=== PATIENT | female | born 1975 ===

== ENCOUNTER 2018-10-10 10:15 | Inpatient (IN) | payer MEDICAID ==
[2018-10-10 19:44] VITALS: BMI 30.8
[2018-10-10] MEDS ORDERED: Lactated Ringer's 1,000 ML IV ONE (19:44)
[2018-10-10] MEDS ORDERED: Nalbuphine HCL 10 mg/ml Ampule IVP ONE (19:47)
--- NOTE | 2018-10-10 20:04 | OBADHP ---
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 , LMP 12/27/17, DUNIA 10/03/18, EGA 41 weeks by sono 03/26/18 at 12w 5d foe elective IOL. ( +) AFM; denies LOF, VB, Ctx; (+) mild vaginal pressure. 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 Denies h/o STIs, abnormal pap, ov cysts, myomata PMH: denies PSH: denies NKDA Meds: PNV - QD; last took this morning Soc Hx: denies tobacco, illicit drug or EtOH use. With FOB x 1 year. Unemployed. Lives alone. Fam Hx: Mother alive 65 y.o. Father alive 64 y.o., both, no med issues. No known fam h/o cancer Assessment: 43 y.o. P0, 41 weeks, IOL. Category 1 tracing. Explained to patient: ripening agent, p ossible pitocin; pain management options were also discussed. Patient expressed an understanding; her and FOB's questions were answered. Patient is clinically stable. Plan: 1) Admit 2) NPO 3) Admission labs 4) Continuous EFM 5) Cervidil, pV 6) Anticipate vaginal delivery Pelvic Type - PN: Adequate Extremities - PN: Normal Abdomen - PN: Normal Back - PN: Normal Breast - PN: Not Done Lungs - PN: Normal Heart - PN: Normal Thyroid - PN: Not Done Neurologic - PN: Normal HEENT - PN: Normal General - PN: Normal Weight - Estimated: 3632 Presentation-Admit: Vertex FHR - Baseline A Provider: 145 Membranes, Provider: Intact Contraction Comments Provider: none Comments, ACOG Physical Exam: Abdomen: Gravid. Soft. Non tender. Fundal height 38cm All other systems reviewed and are negative Gestation - Est Wks by US: 41.0 IP Hx Assessment: The History has been Reviewed and is Current Vital Signs Provider: Reviewed IP Chief Complaint: Scheduled induction of labor Dilatation, Provider: 0 Effacement, Provider: 0 Station, Provider: -3 Genitourinary Exam: Normal DTRs - PN: Not Done EGA AdmitDate IP: 41.0 IP Adm Impression: Postterm, intrauterine ; No Active Labor IP Admit Plan: Admit to unit; Initiate labor induction protocol
[2018-10-10 20:09] LABS: BASO % 0.4 % (0.0-2.0); EOS # 0.3 K/uL (0.0-0.7); EOS % 2.3 % (0.0-4.0); HEMOGLOBIN 13.2 g/dL (11.0-16.0); LYMPH % 23.5 % (20.0-40.0); MEAN CELL VOLUME 86.9 fL (81.0-99.0); MEAN CORPUSCULAR HEMOGLOBIN 30.1 pg (27.0-31.0); MEAN CORPUSCULAR HGB CONC 34.6 g/dL (33.0-37.0); MEAN PLATELET VOLUME 8.9 fL (7.2-11.7); MONO % 8.2 % (0.0-10.0); NEUT # 8.4 K/uL (1.8-7.0); NEUT % 65.6 % (50.0-75.0); NRBC % 0.1 % (0.0-2.0); RBC 4.38 Mil/uL (3.80-5.20); RED CELL DISTRIBUTION WIDTH 14.8 % (11.5-14.5); WHITE BLOOD COUNT 12.8 K/uL (4.8-10.8)
[2018-10-10 20:15] LABS: SQUAMOUS EPITHIAL 15 /hpf (0-5); URINE BACTERIA RARE (<OCC); URINE BILIRUBIN NEGATIVE (NEGATIVE); URINE BLOOD NEGATIVE (NEGATIVE); URINE CALCIUM OXALATE CRYSTALS FEW /hpf (<OCC); URINE CLARITY Hazy (Clear); URINE COLOR Yellow (YELLOW); URINE GLUCOSE (UA) NORMAL (Normal); URINE LEUKOCYTE ESTERASE 3+ Leu/uL (Negative); URINE PROTEIN NEGATIVE (NEGATIVE)
[2018-10-10] MEDS: Lactated Ringer's 1,000 ML IV SCH (20:20)
--- NOTE | 2018-10-10 20:21 | OBPN ---
Datetime: 10/10/2018 20:15 IP Procedures Other: Cervidil placed IP Progress Impression Other: AMA; 41 weeks IP Procedures: Sterile Vag Exam IP Progress Plan: Continue present management; Anticipate Vaginal Delivery Contraction Comments Provider: infrequent Gestation - Est Wks by US: 41.0 IP Progress Note Comment: Cervidil placed in posterior vaginal vault Assessment: 43y.o. P0, 41 weeks, IOL. AMA. Category 1 tracing. Clinically stable. Plan 1) Antiicpate vaginal delivery Vital Signs Provider: Reviewed; Within Normal Limits Dilatation, Provider: 0 Effacement, Provider: 0 Station, Provider: -3 Datetime: 10/10/2018 19:47 Membranes, Provider: Intact FHR - Baseline A Provider: 145 Weight - Estimated: 3632 Presentation-Admit: Vertex
[2018-10-10 20:22] LABS: ALB/GLOB RATIO 1.2 (1.0-2.1); ALBUMIN 3.4 g/dL (3.5-5.0); BLOOD UREA NITROGEN 13 mg/dL (7-17); CALCIUM 8.9 mg/dl (8.6-10.4); GFR NON-AFRICAN AMERICAN > 60
[2018-10-10 20:33] LABS: ALT/SGPT 17 U/L (9-52); AST/SGOT 25 U/L (14-36)
[2018-10-11] MEDS ORDERED: Bupivacaine HCl/FentaNYL Cit 100 ML EPI ONE ×2 (13:41→19:42)
[2018-10-11] MEDS: Lactated Ringer's 1,000 ML IV SCH (17:02)
--- NOTE | 2018-10-11 17:02 | OBPN ---
Datetime: 10/11/2018 16:50 IP Progress Impression Other: Latent phase of labor IP Progress Impression: Normal progression of labor IP Procedures: Artificial ROM; Intrauterine Pressure Catheter; Scalp Electrode IP Progress Plan: Continue present management; Augmentation; Anticipate Vaginal Delivery Membranes, Provider: Ruptured Amniotic Fluid Color, Provider: Clear Contraction Comments Provider: 4-6 FHR - Baseline A Provider: 145 Gestation - Est Wks by US: 41w 1d Presentation-Admit: Vertex IP Progress Note Comment: Patient received in LDR#1 VOYCE Mink Rancher [place], [place] [id number] At approx 1300 hours, patient had been counseled re: continued labor management. This included a d iscussion of AROM, pitocin augmentation and pain management in the form of an epidural. At yamileth time, questions from patient and were answered. Patient had agreed to receiving the epidural - same was placed without incident. At 1640 hours, cervical exam was performed - results as above. AROM yielded minimal amount of jenaro r amnionic fluid. IUPC and ISE were inserted and placed without incident. Assessment: 43 y.o. P0, 41w 1d, IOL; S/P cervidil, cytotec, and now AROM - entering active phase o f labor. As above. Category 1 tracing. Patient is clinically stable. Plan: 1) Start pitocin 2) Anticipate vaginal delivery Vital Signs Provider: Reviewed; Within Normal Limits FHR Category Provider Fetus A: Category I NICHD Variability Prov Fetus A: Moderate 6-25bpm Dilatation, Provider: 5 Effacement, Provider: 50 Station, Provider: -3 NICHD Decel Fetus A IP Provider: None Datetime: 10/11/2018 11:06 IP Informed Consent Obtain: Vaginal Delivery NICHD Accel Fetus A IP Provider: 10X10
[2018-10-11] MEDS ORDERED: Oxytocin 30 UNIT in NS 500 ml 30 UNITS/500 ML BAG IV ONE (17:19)
[2018-10-11] MEDS ORDERED: Oxytocin 30 UNIT in NS 500 ml 30 UNITS/500 ML BAG IV SCH (17:30)
--- NOTE | 2018-10-11 20:16 | OBPN ---
Datetime: 10/11/2018 20:04 IP Progress Impression: Normal progression of labor IP Procedures: Sterile Vag Exam IP Progress Plan: Continue present management; Augmentation; Anticipate Vaginal Delivery Membranes, Provider: Ruptured Contraction Comments Provider: 2-5 FHR - Baseline A Provider: 150 Gestation - Est Wks by US: 41w 1d Presentation-Admit: Vertex IP Progress Note Comment: Asked by R.N. to area counselor with patient: patient's is requesting a C /S VOYCE ID [id number], Fabi Lengthy discusison with patietn and explaining the lengthy process that constitutes IOL th at progresses and results in a vaginal delivery. This had been dD/W patietn and last night; s iman reiterated again. Patient and were concerned as they feel that "thisis taking too long" Cervical examination performed - as above. Pitocin = 6 MUnits. It was explained that the designa tionof 5 cm as acitvie labor was only achieved as of cervical exam at 1640 hours; and that the maneuv ers taken to get to that point, albeit lengthy, are not considered part of active labor. It was expla iined that with the combination of AROM, and pitocin augmentation, progress is being made. Patient and have also been concerned about the well-being of the baby. It was disclosed th at as per our monitoring, the baby appears to be doing well. Assessment: 43 y.o P0, at 41w 1d, IOL now in active labor. Category 1 tracing. Patient has agreed to continue with the labor process in the anticipation of a successful vaginal delivery. Patient is c linically stable. Plan: 1) continue pitocin 2) anticipate vaginal delivery Vital Signs Provider: Reviewed NICHD Accel Fetus A IP Provider: 10X10 FHR Category Provider Fetus A: Category I NICHD Variability Prov Fetus A: Moderate 6-25bpm Dilatation, Provider: 5 Effacement, Provider: 70 Station, Provider: -1 to 0 NICHD Decel Fetus A IP Provider: None
--- NOTE | 2018-10-11 23:27 | OBPN ---
Datetime: 10/11/2018 23:22 IP Progress Impression: Normal progression of labor IP Procedures: Sterile Vag Exam IP Progress Plan: Continue present management; Augmentation; Anticipate Vaginal Delivery Contraction Comments Provider: 2 FHR - Baseline A Provider: 145 Gestation - Est Wks by US: 41w 1d Presentation-Admit: Vertex IP Progress Note Comment: Patient reports increasing vaginal pressure Cervical exam - as above. Pitocin = 10 MUnits Assessment: 43 y.o. P0, 41w 1d S/P IOL near end of Stage 1 of labor. Category 1 tracing. Luisa is clinically stablbe. Plan: 1) continue present management 2) Antiicipate vaginal delivery NICHD Accel Fetus A IP Provider: 10X10 FHR Category Provider Fetus A: Category I NICHD Variability Prov Fetus A: Moderate 6-25bpm Dilatation, Provider: 10 Effacement, Provider: 90 Station, Provider: 0 to +1 NICHD Decel Fetus A IP Provider: Early
[2018-10-12] MEDS ORDERED: Lidocaine 2% MPF (5 ml) Inj ONE (00:04)
[2018-10-12] MEDS ORDERED: Bupivacaine HCl 0.5% PF (10 ml) Inj ONE (00:21)
[2018-10-12] MEDS ORDERED: cefOXitin IV 2 gm in Dextrose 2 GM/50 ML BAG IVPB ONE ×2 (00:48→01:09)
[2018-10-12] MEDS ORDERED: Sodium Citrate/Citric Acid 15 ml Sol PO ONE (00:48)
--- NOTE | 2018-10-12 00:59 | OBPN ---
Datetime: 10/12/2018 00:51 IP Progress Impression: Arrest of dilatation/descent IP Informed Consent Obtain: Section Delivery IP Procedures: Sterile Vag Exam IP Progress Plan: Deliver- Section Contraction Comments Provider: 3-4 FHR - Baseline A Provider: 145 IP Progress Note Comment: Patient with increasing pelvic pressure Cervical exam as above. Pitocin = 10 MUnits Assessment: 43 y.o. P0, 41w 2d, arrest of descent and dilatation at 9.5 cm. Category 1 tracing. Ben gaming counseled for primary C/S. Patient agrees. Informed consent obtained. Patient is clinically sta ble. Plan: 1) Abdominal prep and shave 2) Notify anesthesia 3) Notify peds 4) Mefoxin, professor of education to O.R. 5) patient professor of education to O.R. FHR Category Provider Fetus A: Category I NICHD Variability Prov Fetus A: Moderate 6-25bpm Dilatation, Provider: 10 Effacement, Provider: 90 Station, Provider: 0 NICHD Decel Fetus A IP Provider: Early
[2018-10-12] MEDS ORDERED: Oxytocin 20 units in LR 2,000 ML IV ONE (01:09)
[2018-10-12] MEDS ORDERED: Sodium Citrate/Citric Acid 15 ml Sol ONE (01:09)
[2018-10-12] MEDS ORDERED: Oxytocin 10 Units/ml Inj ONE (01:19)
[2018-10-12] MEDS ORDERED: ePHEDrine 50 mg/ml Inj ONE (02:02)
[2018-10-12] MEDS ORDERED: Morphine 1 mg/ml preservative-free Inj(Duramorph) ONE (02:02)
[2018-10-12] MEDS ORDERED: Oxycodone/Acetaminophen 5/325 mg Tab PO PRN ×2 (03:25)
--- NOTE | 2018-10-12 03:32 | PCM.SURG1 ---
Surgeon's Initial Post Op Note - Surgeon's Notes Surgeon: Nola English MD Cushion Gum Applicator: Andrea Lucas MD Type of Anesthesia: Spinal Anesthesia Administered By: Niesha Sanchez MD Pre-Operative Diagnosis: 41 weeks 3 days, arrest of dilatation/descent; Advanced maternal age, Operative Findings: Live female , АЛЕКСАНДР position, loose nuchal cord x 1, weight 7lb 7oz, 's 9/9. cord pH. Normal uterus; normal ovaries and falloian tubes, bilaterally Post-Operative Diagnosis: Same Operation Performed: Primary LTCS Specimen/Specimens Removed: None Estimated Blood Loss: EBL {In ML}: 800 (U.O. 300 mL; 2,000 mL LR, 1st L with 40 Units Pitocin. Hemabate 250 micrograms IM x 1 and methergine 0.2mg SC x 1 given) Blood Products Given: N/A Drains Used: No Drains Post-Op Condition: Good Date of Surgery/Procedure: 10/12/18 Time of Surgery/Procedure: 03:33
--- NOTE | 2018-10-12 03:52 | OBDS ---
DELIVERY PERSONNEL Delivery Doctor: Sudhir English MD Court Of Appeals Judge: Rubina Hagen RN Anesthesiologist: DR MARY. MATERNAL INFORMATION Delivery Anesthesia: Spinal Medications in Delivery: PITOCIN 20UNITS IN NS 100ML. Maternal Complications: None Provider Comments: Uncomplicated primary LTCS with atraumatic delivery of live female , АЛЕКСАНДР, w eight 7lb 7oz, 's 9/9. Cord pH 7.26. Mild uterine atony requiring 40 units of pitocin, methergine and hemabate. Hemostasis assured. Patient tolerated procedure well. LABOR SUMMARY EDC: 10/03/2018 00:00 No. Babies in Womb: 1 Attempted: No Labor Anesthesia: Epidural LABOR INFORMATION Reason for Induction: Postterm Cervical Ripening Agents: Cervidil; Cytotec @ Oxytocin: Induction Group B Beta Strep: Negative Steroids Given: None Reason Steroids Not Administered: Not Applicable MEMBRANES Membranes Rupture Method: Artificial Rupture of Membranes: 10/12/2018 16:40 Length of Rupture (hrs): -14.30 Amniotic Fluid Color: Clear Amniotic Fluid Amount: Moderate Amniotic Fluid Odor: Normal STAGES OF LABOR Stage 3 hrs: 0 Stage 3 min: 19 VAGINAL DELIVERY Episiotomy: None Laceration Extension: N/A Laceration Type: None CSECTION DELIVERY Primary Indication: Failed Induction Secondary Indication: Nonreassuring Status CSection Urgency: Emergency CSection Incidence: Primary Labor: Labor Elective: Nonelective BABY A INFORMATION Delivery Date/Time: 10/12/2018 02:22 Method of Delivery: Born in Route : No : N/A Forceps: N/A Shoulder Dystocia : No SHOULDER DYSTOCIA BABY A Delivery Date/Time: 10/12/2018 02:22 PRESENTATION/POSITION BABY A Presentation: Cephalic Cephalic Presentation: Vertex Breech Presentation: N/A PLACENTA INFORMATION BABY A Placenta Delivery Time : 10/12/2018 02:41 Placenta Method of Delivery: Manual Removal Placenta Status: Delivered SCORES BABY A Heart Rate 1 min: >100 bpm Resp Effort 1 min: Good Cry Reflex Irritability 1 min: Cough or Sneeze or Pulls Away Muscle Tone 1 min: Active Motion Color 1 min: Body [place], Extremities Blue SCORE 1 MIN: 9 Heart Rate 5 min: >100 bpm Resp Effort 5 min: Good Cry Reflex Irritability 5 min: Cough or Sneeze or Pulls Away Muscle Tone 5 min: Active Motion Color 5 min: Body [place], Extremities Blue SCORE 5 MIN: 9 INFANT INFORMATION BABY A Gestational Age at Delivery: 41.0 Gestational Status: Term Outcome : Liveborn Infant Condition : Stable Infant Sex: Male IDENTIFICATION/MEDS BABY A ID Band Number: [id number] ID Band Location: Left Leg; Left Arm Sensor Applied: Yes Sensor Number: [id number] Sensor Location : Cord Clamp Vitamin K Given : Deferred by Parents Erythromycin Given: Deferred by Parents WEIGHT/LENGTH BABY A Infant Birthweight (gms): 3385 Infant Weight (lb): 7 Weight (oz): 7 Infant Length Inches: 20.00 Infant Length cms: 50.8 CORD INFORMATION BABY A No. Cord Vessels: 3 Nuchal Cord : Around Neck x1, Loose Nuchal Cord Other: N/A True Knot: 0 Cord Blood Taken: Yes Suction: Mouth; Nose ASSESSMENT BABY A Infant Complications: None Physical Findings at Delivery: Within Normal Limits Respirations: Appears Normal Gis Software Engineer/ALS Called : No Infant Care By: DR AVENDANO AND DANE SILVER. Transferred To: Nursery
--- NOTE | 2018-10-12 06:28 | OP ---
PROCEDURE DATE: 10/12/2018 PREOPERATIVE DIAGNOSES: A 41 weeks 3 days gestation, arrest of dilatation and descent, advanced maternal age. POSTOPERATIVE DIAGNOSES: A 41 weeks 3 days gestation, arrest of dilatation and descent, advanced maternal age. OPERATION PERFORMED: Primary low transverse Caesarean section. SURGEON: Nola English MD FREELANCE DATA ENTRY: Andrea Lucas MD ANESTHESIOLOGIST: Niesha Sanchez MD ANESTHESIA TYPE: Spinal. OPERATIVE FINDINGS: Live female infant from the right occiput anterior position, loose nuchal cord x1. Weight was 7 pounds 7 ounces. 's of 9 and 9 at 1 and 5 minutes respectively. Cord pH was performed, results are pending. Normal uterus, normal ovaries and fallopian tubes bilaterally. SPECIMENS: None. ESTIMATED BLOOD LOSS: 800 mL. URINE OUTPUT: 300 mL. INTRAVENOUS FLUIDS: 2000 mL of lactated Ringer's, the first liter with 40 units of Pitocin. Hemabate 250 mcg IM x1 and Methergine 0.2 mg subcuta- neously x1 ws also given. COMPLICATIONS: None. DESCRIPTION OF PROCEDURE: The patient was taken to the operating room after having obtained informed consent for the anticipated procedure. This included a discussion of possible risks, complications including but not limited to infection requiring antibiotics, hemorrhage requiring blood transfusion, repair of any damage to internal organs, possible Caesarean hysterectomy. The patient expressed an understanding and her questions were answered. Consent forms were signed, dated, witnessed, and placed in the chart. The patient received Mefoxin 2 grams intravenously prior to being escorted to the operating room. In the operating room, she was placed in a sitting position where spinal anesthesia was administered without incident. She was immediately repositioned into supine position. heart rate was noted to be 145 beats per minute throughout the entire procedure. The patient's abdomen was then prepped and she was subsequently draped in the usual sterile fashion. After assuring an adequate level of anesthesia, using the scalpel, a Pfannenstiel incision was made on the skin. The incision was carried down through the subcutaneous tissue using Bovie electrocautery. The fascia was identified. It was nicked in the midline and incision was extended bilaterally. The rectus muscle was dissected off the overlying fascia. By blunt dissection, the peritoneal cavity was entered. The vesicouterine reflection was identified and the bladder flap was created. A transverse incision was made on the lower uterine segment. Atraumatic delivery of the with findings as above then ensued. Once on the operative field, the 's mouth and nose were bulb suctioned as the umbilical cord was doubly clamped and cut. The infant was handed off the operative field to the asp net programmer in attendance. A segment of the cord was obtained for cord pH analysis, results are pending. By manual extraction, the placenta was delivered. It was grossly intact with three vessels present in the cord. The uterus was exteriorized for closure, it was noted to be extremely boggy. At this point in time, Hemabate and Methergine were administered as described above and a total of 40 units of Pitocin was also infused. The uterine incision was then closed in two layers using 0 Vicryl, the first layer was in a running interlocking fashion, the second layer was in a horizontal imbricating fashion. An additional [id number] stitch was then placed using 0 Monocryl. At this time, the posterior aspect of the uterus was inspected and the pelvic viscera was noted and described as above. Copious irrigation was performed. Attention was then redirected back to the uterine incision, it was noted be hemostatic. A layer of Surgicel was placed on the uterine incision and the bladder flap was reapproximated using 2-0 chromic in a running fashion. The uterus was then returned to the abdominal cavity. The paracolic gutters were cleared of all debris. The parietal peritoneum was then reapproximated using 2-0 chromic in a running fashion. The rectus muscle was reapproximated in midline using 2-0 chromic in a running fashion. The fascia was reapproximated using one 0 Vicryl in a running fashion in one strand. The subcutaneous tissue was reapproximated using 0 plain gut in a running fashion and the skin was reapproximated using surgical clips. The patient was then repositioned in a frog-leg manner. Bimanual exploration was performed and the uterus was emptied of all additional clots and blood. The uterus was noted be contracted and firm. A pressure dressing was applied. The patient was then transferred back to [facility] in stable condition. The infant had been transferred to [facility] in stable condition. Dr. Andrea Lucas was present throughout the entire procedure from beginning to end. His presence and expertise were needed for the followin. Assuring adequate visualization of the operative field at all times. 2. Assuring the safe and atraumatic delivery of the . 3. Assuring adequate hemostasis. Nola Nichole English MD ДМИТРИЙ
[2018-10-12] MEDS: Simethicone 80 mg Chewtab PO SCH ×4 (09:29→21:36)
[2018-10-12] MEDS: Prenatal Multivit/Folic Acid/Iron Tab PO SCH (09:29)
[2018-10-12] MEDS ORDERED: Docusate-Senna 50 mg-8.6 mg Tab PO SCH (22:00)
--- NOTE | 2018-10-13 08:02 | OBPPN ---
Datetime: 10/13/2018 07:58 PP Pain Prov: Within normal limits PP Nausea Prov: Denies PP Flatus Prov: No PP BM Prov: No PP Lochia Prov: Normal PP C/S Incision Prov: Normal PP Impression Prov: Normal progression PP Plan Prov: Continue present management PP Progress Note Prov: A/P: s/p c/s POD #1 - stable, afebrile - incision w/gerardo, intact - +breast/bottle - continue post op care IP PP Procedures: None Vital Signs Provider PP: Reviewed; Within Normal Limits
[2018-10-13 09:01] LABS: MEAN CELL VOLUME 86.7 fL (81.0-99.0); MEAN CORPUSCULAR HEMOGLOBIN 30.9 pg (27.0-31.0); MEAN CORPUSCULAR HGB CONC 35.7 g/dL (33.0-37.0); MEAN PLATELET VOLUME 8.6 fL (7.2-11.7); RBC 3.43 Mil/uL (3.80-5.20); RED CELL DISTRIBUTION WIDTH 15.2 % (11.5-14.5)
[2018-10-13 09:06] LABS: WHITE BLOOD COUNT 22.4 K/uL (4.8-10.8)
[2018-10-13 09:07] LABS: HEMOGLOBIN 10.6 g/dL (11.0-16.0)
[2018-10-13] MEDS: Simethicone 80 mg Chewtab PO SCH ×4 (09:51→21:23)
[2018-10-13] MEDS: Prenatal Multivit/Folic Acid/Iron Tab PO SCH (09:53)
[2018-10-13 20:25] LABS: BASO % 0.2 % (0.0-2.0); EOS # 0.4 K/uL (0.0-0.7); EOS % 1.9 % (0.0-4.0); HEMOGLOBIN 10.5 g/dL (11.0-16.0); LYMPH # 3.4 K/uL (1.0-4.3); LYMPH % 15.7 % (20.0-40.0); MEAN CELL VOLUME 88.1 fL (81.0-99.0); MEAN CORPUSCULAR HEMOGLOBIN 30.4 pg (27.0-31.0); MEAN CORPUSCULAR HGB CONC 34.5 g/dL (33.0-37.0); MEAN PLATELET VOLUME 8.6 fL (7.2-11.7); MONO # 1.6 K/uL (0.0-0.8); MONO % 7.3 % (0.0-10.0); NEUT # 16.4 K/uL (1.8-7.0); NEUT % 74.9 % (50.0-75.0); RBC 3.44 Mil/uL (3.80-5.20); RED CELL DISTRIBUTION WIDTH 15.3 % (11.5-14.5); WHITE BLOOD COUNT 21.9 K/uL (4.8-10.8)
[2018-10-14] MEDS ORDERED: guaiFENesin 100 mg/5 ml Syrup UD PO PRN (06:39)
[2018-10-14 08:23] LABS: BASO % 0.2 % (0.0-2.0); EOS # 0.4 K/uL (0.0-0.7); EOS % 1.8 % (0.0-4.0); HEMOGLOBIN 10.8 g/dL (11.0-16.0); LYMPH # 2.1 K/uL (1.0-4.3); LYMPH % 10.2 % (20.0-40.0); MEAN CORPUSCULAR HEMOGLOBIN 30.4 pg (27.0-31.0); MEAN CORPUSCULAR HGB CONC 35.3 g/dL (33.0-37.0); MEAN PLATELET VOLUME 8.5 fL (7.2-11.7); MONO # 1.3 K/uL (0.0-0.8); MONO % 6.3 % (0.0-10.0); NEUT # 16.8 K/uL (1.8-7.0); NEUT % 81.5 % (50.0-75.0); RBC 3.55 Mil/uL (3.80-5.20); RED CELL DISTRIBUTION WIDTH 14.9 % (11.5-14.5)
[2018-10-14 08:26] LABS: MEAN CELL VOLUME 86.1 fL (81.0-99.0); WHITE BLOOD COUNT 20.7 K/uL (4.8-10.8)
[2018-10-14] MEDS: guaiFENesin 100 mg/5 ml Syrup UD PO PRN ×3 (08:56→22:08)
[2018-10-14] MEDS: Prenatal Multivit/Folic Acid/Iron Tab PO SCH (09:01)
[2018-10-14] MEDS: Simethicone 80 mg Chewtab PO SCH ×4 (09:01→22:07)
--- NOTE | 2018-10-14 12:51 | OBPPN ---
Datetime: 10/14/2018 10:57 PP Pain Prov: Within normal limits PP Nausea Prov: Denies PP Flatus Prov: Yes PP BM Prov: No PP Breasts Prov: Normal PP Heart Prov: Normal PP Lungs Prov: Normal PP Abdomen/Uterus Prov: Normal PP Lochia Prov: Normal PP Vulva/Perineum Prov: Not Done PP CVA Tenderness Prov: Normal PP Extremities Prov: Normal PP C/S Incision Prov: Normal PP Progress Prov: Abnormal PP Comments Phys Exam Prov: Abdomen: Soft Non distended. (+) BS. Incision with gerardo - clean, dry and intact. Fundus firm, mobile, minimally tender, 1 FB above umbilicus. Mild lochia rubra Extremities: no calf tenderness, Bilateral 1+ pedal edema All other systems reviewed and are negative PP Impression Prov: Normal progression PP Plan Prov: Continue present management PP Progress Note Prov: Patient noted ambulating in the hallways Reports incisional pain, pain scale 4/10. Not "the baby can not latch on". Denies na usea, vomiting. Voiding. Denies lightheadedness, dizzinesss, chest pain, palpitations. Concerned re: no bowel movement. Denies any discomfort. P.E.: as above. WD in NAD. Awake, alert, oriented to time, person and place. Pleasant and cooperat pallavi. husbvand present - POD H/H 10.8/30.6. Rh(+) Assessment: POD#2, 43 y.o. P1, S/P primary LTCS for failed IOL/ arrest of dilatation. Afebrile, v ital signs stable. Patient encouraged to ambulate, consume more fresh fruits, green vegetables and wa ter. Patient is clinically stable,. Plan: 1) as above. 2) anticipate discharge home 10/15/18 IP PP Procedures: None
--- NOTE | 2018-10-14 17:05 | RAD ---
Date of service: 10/14/2018 HISTORY: Fever 101.2 POD#2 S/P C/S COMPARISON: No prior. TECHNIQUE: Chest PA and lateral views FINDINGS: LUNGS: No active pulmonary disease. PLEURA: No significant pleural effusion identified. No pneumothorax apparent. CARDIOVASCULAR: No aortic atherosclerotic calcification present. Normal cardiac size. No pulmonary vascular congestion. OSSEOUS STRUCTURES: No significant abnormalities. VISUALIZED UPPER ABDOMEN: Normal. OTHER FINDINGS: None. IMPRESSION: No active disease.
[2018-10-15] MEDS: Prenatal Multivit/Folic Acid/Iron Tab PO SCH (10:52)
[2018-10-15] MEDS: Simethicone 80 mg Chewtab PO SCH ×4 (10:52→22:55)
[2018-10-15 11:12] LABS: BASO # 0.2 K/uL (0.0-0.2); BASO % 0.9 % (0.0-2.0); EOS # 0.4 K/uL (0.0-0.7); EOS % 2.2 % (0.0-4.0); HEMOGLOBIN 10.5 g/dL (11.0-16.0); LYMPH # 3.3 K/uL (1.0-4.3); LYMPH % 16.5 % (20.0-40.0); MEAN CELL VOLUME 86.7 fL (81.0-99.0); MEAN CORPUSCULAR HEMOGLOBIN 30.7 pg (27.0-31.0); MEAN CORPUSCULAR HGB CONC 35.4 g/dL (33.0-37.0); MEAN PLATELET VOLUME 8.2 fL (7.2-11.7); MONO # 1.5 K/uL (0.0-0.8); MONO % 7.2 % (0.0-10.0); NEUT # 14.8 K/uL (1.8-7.0); NEUT % 73.2 % (50.0-75.0); NRBC % 0.1 % (0.0-2.0); RBC 3.41 Mil/uL (3.80-5.20); RED CELL DISTRIBUTION WIDTH 14.7 % (11.5-14.5); WHITE BLOOD COUNT 20.3 K/uL (4.8-10.8)
[2018-10-15] MEDS: guaiFENesin 200 mg/10 ml Syrup UD PO PRN ×2 (13:30→22:56)
--- NOTE | 2018-10-15 17:37 | OBPPN ---
Datetime: 10/15/2018 12:04 PP Pain Prov: Within normal limits PP Nausea Prov: Denies PP Flatus Prov: Yes PP BM Prov: Yes PP Heart Prov: Normal PP Lungs Prov: Normal PP Abdomen/Uterus Prov: Normal PP Impression Prov: Normal progression PP Plan Prov: Continue present management PP Progress Note Prov: 43 F s/p C/s PPD #3. Pt reports feeling well, reporting minimal pain, primarily when coughing. Pt still has persistent dry couging. Pt reports passing flatulence and havi ng BM. Pt denies fevers, chills, headaches, chest pain, SOB, abdominal pain, lower extremity pain. Ye pt had 1 x febrile episode. Pt encouraged incentive spirometry w/ blood cultures obtained. Vitals: BP 116/66, HR 91 Temp 98.5 PE: Cardio S1, S2, RR Resp: CTAL B/L, no wheezes, rales, ronchi Abd: incision site, clean dry intact, uterus around umbilicus area A/P 43 F/ PPD # 3, s/p C/s for failed IOL; 1 x febrile episode on 10/14 w/ persistent elevated WBC in 20s. Presently afebrile, U/C likely contamination. Clinically stable 1) Repeat CBC in AM 2) Encourage Incentive spirometry Q 1hr 3) Continue to monitor closely 4) Will consider abx pending cultures _ repeat febrile episode 5) Encourage po hydration and activity 6. Will repeat CBc in AM Vital Signs Provider PP: Reviewed; Within Normal Limits Datetime: 10/14/2018 15:20 PP Comments Phys Exam Prov: Lungs: decrased breath sounds throughout both lung harrison bilaterally Cardiac: mild sinus tachycardia, otherwise, normal S1, S2 Vital Signs Provider Details PP: Tm 101.2 at 1500 hours
[2018-10-16 08:16] LABS: BASO # 0.1 K/uL (0.0-0.2); BASO % 0.5 % (0.0-2.0); EOS # 0.5 K/uL (0.0-0.7); EOS % 3.1 % (0.0-4.0); HEMOGLOBIN 10.4 g/dL (11.0-16.0); LYMPH # 2.8 K/uL (1.0-4.3); LYMPH % 15.9 % (20.0-40.0); MEAN CELL VOLUME 87.1 fL (81.0-99.0); MEAN CORPUSCULAR HEMOGLOBIN 30.3 pg (27.0-31.0); MEAN CORPUSCULAR HGB CONC 34.8 g/dL (33.0-37.0); MEAN PLATELET VOLUME 7.7 fL (7.2-11.7); MONO # 1.1 K/uL (0.0-0.8); MONO % 6.3 % (0.0-10.0); NEUT # 12.9 K/uL (1.8-7.0); NEUT % 74.2 % (50.0-75.0); RBC 3.45 Mil/uL (3.80-5.20); RED CELL DISTRIBUTION WIDTH 14.7 % (11.5-14.5); WHITE BLOOD COUNT 17.4 K/uL (4.8-10.8)
[2018-10-16 09:34] VITALS: BP 128/88; PULSE 96; RESP 18; O2SAT 100
[2018-10-16] MEDS: Prenatal Multivit/Folic Acid/Iron Tab PO SCH (10:23)
[2018-10-16] MEDS: Simethicone 80 mg Chewtab PO SCH (10:23)
[2018-10-16 20:11] VITALS: TEMP 98
--- NOTE | 2018-10-16 22:33 | OBDCSUM ---
Datetime: 10/16/2018 09:54 Disch Referrals: None Discharge Diagnosis Prov Other: Advanced maternal age Failed induction of labor Arrest of dilataiton/descent Post operative fever Atelectasis Acute blood loss anemia
--- NOTE | 2018-10-16 22:34 | OBPPN ---
Datetime: 10/16/2018 10:04 PP Pain Prov: Within normal limits PP Nausea Prov: Denies PP Flatus Prov: Yes PP BM Prov: Yes PP Heart Prov: Normal PP Lungs Prov: Normal PP Abdomen/Uterus Prov: Normal PP Lochia Prov: Normal PP C/S Incision Prov: Normal PP Progress Prov: Normal PP Comments Phys Exam Prov: See exam below. PP Impression Prov: Normal progression PP Plan Prov: Continue present management PP Progress Note Prov: Patient seen and examined at bedside. Pt is s/p c/s POD #4. Patient reports b reastfeeding baby with no issues, passing flatulence, + BM. Patient reports feeling well, still havin g a productive, white sputum cough; however, it is much reduced from previous days. Patient reports a mbulating and using incentive spiratometer. Patient denies fevers, chills, nausea, vomiting. Pt denie s headaches, chest pain, SOB, abdominal pain. Vitals: BP 128/88 HR 96 Temp 98 HEENT: atrumaitc, normocephalic Cardio: S1, S2 Resp: CTAL B/L : Fundal height 2 fingers below umbilicus Labs; See EMR A/P 43 F POD # 4, s/p C/s. Clinically stable, cxray showing no active disease, WBC downtre nding to now 17s, afebrile. 1) stable for discharge 2) continue iron PO daily 3) continue stool softener 4) continue to ambulate 5) continye to PO h20 hydration See below discharge instructions: 1) Patient should take the following medications: ferrous sulfate 325 mg, 1 tablet by mouth daily colace 100 mg, 1 tablet by mouth daily motrin 600 mg, 1 tablet by mouth, every 6 hours by mouth as needed for pain 2) Patient should follow up with OBGYn on 10/18/18 3) Patient should avoid sex and foreign objects via vagina for next 6 weeks. 4) Please do not lift anything more than your baby for th enext 2 weeks. 5) Please keep incision area clean, dry, intact. Do not soak in a bathtub. 6) Please note you may have vaginal bleeding for upto 6 weeks. 7) Please return to the hospital if you are excessively bleeding _/or feelign shortness of breath, fevers, chills, nausea, vomiting. Attendng Note: Patient seen, evaluated and examined by me with the resident, KIRBY, PGY-1. I agree with the above as documented. IP PP Procedures: None Vital Signs Provider PP: Reviewed; Within Normal Limits
== END 2018-10-16 15:35 | disposition home or self-care (01) | DRG 540 ==
LOC: C.4LDOR 19:00 → C.4D 19:46 → C.4M 10-12 07:37
PROVIDERS: ADMIT Obstetrics & Gynecology; ATTEND Obstetrics & Gynecology
PROC: 3E0P7VZ Introduction of Hormone into Female Reproductive, Via Natural or Artificial Opening (ICD-10-PCS; 2018-10-10)
PROC: 10907ZC Drainage of Amniotic Fluid, Therapeutic from Products of Conception, Via Natural or Artificial Opening (ICD-10-PCS; 2018-10-11)
PROC: 10D00Z1 Extraction of Products of Conception, Low, Open Approach (ICD-10-PCS; principal; 2018-10-12)
DX: O48.0 Post-term pregnancy (principal); O62.1 Secondary uterine inertia; O61.9 Failed induction of labor, unspecified; D62 Acute posthemorrhagic anemia; J98.11 Atelectasis; O69.81X0 Labor and delivery complicated by cord around neck, without compression, not applicable or unspecified; O99.02 Anemia complicating childbirth; R50.82 Postprocedural fever; Z3A.41 41 weeks gestation of pregnancy; Z37.0 Single live birth